=== PATIENT | male | born 1965 ===

== ENCOUNTER 2018-04-26 20:28 | Emergency (ER) | payer MEDICAID ==
[2018-04-26 20:56] VITALS: BP 133/80; PULSE 90; RESP 16; TEMP 97.8; O2SAT 98
--- NOTE | 2018-04-26 21:18 | ED PDOC ---
HPI: Abdomen Time Seen by Provider: 04/26/18 21:07 Chief Complaint (Nursing): Abdominal Pain Chief Complaint (Provider): abdominal pain History Per: Patient History/Exam Limitations: no limitations Onset/Duration Of Symptoms: Days, Waxing/Waning Current Symptoms Are (Timing): Gone Now Location Of Pain/Discomfort: RUQ, Epigastric, LUQ Quality Of Discomfort: Cramping, "Pain" Additional History Per: Patient Additional Complaint(s): 52 y/o male presents for evaluation of intermittent upper abdominal pain x 4 days. Patient states he was evaluated by his primary doctor and sent for an ultrasound because his liver function tests were elevated. Patient admits to drinking approximately 4-5 beers daily. Denies fever, nausea/vomiting, chest pain, shortness of breath, palpitations, changes in bowel movements, urinary symptoms. Past Medical History Reviewed: Historical Data, Nursing Documentation, Vital Signs Vital Signs: Last Vital Signs Temp 97.8 F 04/26/18 20:53 Pulse 90 04/26/18 20:53 Resp 16 04/26/18 20:53 BP 133/80 04/26/18 20:53 Pulse Ox 98 04/26/18 20:53 - Medical History PMH: No Chronic Diseases - Surgical History Surgical History: Hernia Repair - Family History Family History: States: No Known Family Hx - Social History Current smoker - smoking cessation education provided: No Alcohol: > 2 Drinks/Day Drugs: Denies - Allergies Allergies/Adverse Reactions: Allergies Allergy/AdvReac Type Severity Reaction Status Date / Time No Known Allergies Allergy Verified 04/26/18 20:54 Review of Systems ROS Statement: Except As Marked, All Systems Reviewed And Found Negative Gastrointestinal: Positive for: Abdominal Pain Physical Exam - Reviewed Nursing Documentation Reviewed: Yes Vital Signs Reviewed: Yes - Physical Exam Appears: Positive for: Well, Non-toxic, No Acute Distress Head Exam: Positive for: ATRAUMATIC, NORMAL INSPECTION, NORMOCEPHALIC Skin: Positive for: Normal Color Eye Exam: Positive for: Normal appearance ENT: Positive for: Normal ENT Inspection Cardiovascular/Chest: Positive for: Regular Rate, Rhythm Respiratory: Positive for: Normal Breath Sounds Gastrointestinal/Abdominal: Positive for: Normal Exam, Bowel Sounds, Soft. Negative for: Tenderness Back: Positive for: Normal Inspection Extremity: Positive for: Normal ROM Neurologic/Psych: Positive for: Alert, Oriented (x3) - Laboratory Results Result Diagrams: 04/26/18 21:38 04/26/18 21:38 - ECG ECG: Positive for: Viewed By Me (reviewed by ED attending) ECG Rhythm: Positive for: Nonspecific Changes O2 Sat by Pulse Oximetry: 98 Pulse Ox Interpretation: Normal - Progress ED Course And Treament: -cbc -cmp -lipase -serum alcohol -urinalysis -abdomen u/s 23:30 Patient dress, states he is feeling better and wants to leave. Patient was advised that ultrasound results not back yet Patient demonstrates full understanding, requesting to have heplock removed. Upon going to write up AMA paperwork patient left ED Disposition - Clinical Impression Clinical Impression: Abdominal pain, Alcohol abuse - Disposition Disposition: Left W/O Treatment Disposition Time: 23:30 Condition: IMPROVED Forms: [facility] (Malay)
[2018-04-26 21:49] LABS: BASO # 0.1 K/uL (0.0-0.2); BASO % 0.9 % (0.0-2.0); EOS # 0.1 K/uL (0.0-0.7); EOS % 1.7 % (0.0-4.0); LYMPH # 2.6 K/uL (1.0-4.3); LYMPH % 37.2 % (20.0-40.0); MEAN CELL VOLUME 93.6 fl (80.0-94.0); MEAN CORPUSCULAR HEMOGLOBIN 31.4 pg (27.0-31.0); MEAN CORPUSCULAR HGB CONC 33.6 g/dL (33.0-37.0); MONO # 0.8 K/uL (0.0-0.8); MONO % 11.1 % (0.0-10.0); NEUT # 3.4 K/uL (1.8-7.0); NEUT % 49.1 % (50.0-75.0); RBC 4.46 Mil/uL (4.40-5.90); RED CELL DISTRIBUTION WIDTH 13.3 % (11.5-14.5)
[2018-04-26 21:59] LABS: ALB/GLOB RATIO 1.3 (1.0-2.1); ALT/SGPT 87 U/L (21-72); AST/SGOT 65 U/L (17-59); BLOOD UREA NITROGEN 13 mg/dl (9-20); CALCIUM 8.9 mg/dL (8.4-10.2); GFR NON-AFRICAN AMERICAN > 60; LIPASE 253 U/L (23-300)
--- NOTE | 2018-04-27 08:41 | CARD ---
APPROVED REPORT Date of service: 04/26/2018 EKG Measurement Heart [id number] <Conclusion> Normal sinus rhythm Minimal voltage criteria for LVH, may be normal variant T wave abnormality, consider lateral ischemia Abnormal ECG
--- NOTE | 2018-04-27 11:05 | US ---
Date of service: 04/26/2018 HISTORY: upper abdominal pain, elevated LFTs COMPARISON: None. TECHNIQUE: Sonographic evaluation of the right upper quadrant of the abdomen. FINDINGS: LIVER: Measures 17.1 cm in length. Hepatopedal blood flow. Fatty infiltration manifest ultrasonographically as increased echogenicity of the liver parenchyma. No mass. No intrahepatic bile duct dilatation. GALLBLADDER: Cholelithiasis. Negative study for gallbladder wall thickening, pericholecystic fluid, sonographic Durand's sign. COMMON BILE DUCT: Measures 5.0 mm. No stones. No dilatation. PANCREAS: Unremarkable as visualized. No mass. No ductal dilatation. RIGHT KIDNEY: Measures 5.8 x 11.2 cm in length. Normal echogenicity. No calculus, mass, or hydronephrosis. AORTA: No aneurysmal dilatation. IVC: Unremarkable. OTHER FINDINGS: None . IMPRESSION: Cholelithiasis. No sonographic evidence of acute cholecystitis. Concordant findings (preliminary report) provided by [facility].
== END 2018-04-26 23:30 | disposition left against medical advice (07) ==
LOC: H.ER 20:28
DX: R10.13 Epigastric pain (principal); F10.10 Alcohol abuse, uncomplicated

== ENCOUNTER 2018-09-09 07:55 | Emergency (ER) | payer MEDICAID ==
[2018-09-09 08:01] VITALS: BMI 29.7
[2018-09-09 08:04] VITALS: BP 194/127; PULSE 92; RESP 18; TEMP 98.6; O2SAT 99
[2018-09-09] MEDS ORDERED: Amoxicillin-Clav 500-125 mg Tab PO STA (08:19)
--- NOTE | 2018-09-09 08:36 | ED PDOC ---
HPI: Skin/Bite Injury Time Seen by Provider: 09/09/18 08:09 Chief Complaint (Nursing): Abnormal Skin Integrity Chief Complaint (Provider): Abnormal Skin Integrity History Per: Patient History/Exam Limitations: no limitations Onset/Duration Of Symptoms: Days (x1) Current Symptoms Are (Timing): Still Present Additional Complaint(s): 53 y/o male with a PMHx of HTN and DM presents to the ED for evaluation of a rash, onset one day ago. Patient notes symptoms began after drinking a cup of tea and honey while at his mother's house about 1 day ago. Patient reports of taking Benadryl every 2 hours and applying cortisone cream for the rash with no relief. Patient describes rash as very itchy. PMD: Non [facility] Provider Past Medical History Reviewed: Historical Data, Nursing Documentation, Vital Signs Vital Signs: Last Vital Signs Temp 98.6 F 09/09/18 08:02 Pulse 92 H 09/09/18 08:02 Resp 18 09/09/18 08:02 BP 194/127 H 09/09/18 08:02 Pulse Ox 99 09/09/18 08:02 - Medical History PMH: Diabetes, HTN - Surgical History Surgical History: Hernia Repair - Family History Family History: States: Unknown Family Hx - Home Medications Home Medications: Ambulatory Orders Medication Instructions Recorded Amoxicillin/Clavulanate [Augmentin 1 tab PO TID #21 tab 09/09/18 500 MG-125 MG] hydrOXYzine HCl [Atarax] 25 mg PO Q6H PRN #20 tab 09/09/18 predniSONE [predniSONE Tab] 40 mg PO DAILY #10 tab 09/09/18 - Allergies Allergies/Adverse Reactions: Allergies Allergy/AdvReac Type Severity Reaction Status Date / Time No Known Allergies Allergy Verified 04/26/18 20:54 Review of Systems ROS Statement: Except As Marked, All Systems Reviewed And Found Negative Skin: Positive for: Rash Physical Exam - Reviewed Nursing Documentation Reviewed: Yes Vital Signs Reviewed: Yes - Physical Exam Appears: Positive for: No Acute Distress, Uncomfortable Head Exam: Positive for: ATRAUMATIC, NORMOCEPHALIC Skin: Positive for: Warm, Rash (Mildly indurated, irregularly shaped, erythematous rash.) Eye Exam: Positive for: Normal appearance Neck: Positive for: Normal Cardiovascular/Chest: Negative for: Bradycardia, Tachycardia Respiratory: Negative for: Respiratory Distress Neurological/Psych: Positive for: Awake, Alert - ECG O2 Sat by Pulse Oximetry: 99 (RA) Pulse Ox Interpretation: Normal Medical Decision Making Medical Decision Making: Time: 818 Plan: -- Atarax 25 mg PO -- Augmentin 1 tab PO -- PredniSONE 40 mg PO Scribe Attestation: Documented by Johnathan Gerard, acting as a scribe Selina Rodriguez MD. Provider Scribe Attestation: All medical record entries made by the Scribe were at my direction and personally dictated by me. I have reviewed the chart and agree that the record accurately reflects my personal performance of the history, physical exam, medical decision making, and the department course for this patient. I have also personally directed, reviewed, and agree with the discharge instructions and disposition. Disposition - Clinical Impression Clinical Impression: Dermatitis - Patient ED Disposition Is Patient to be Admitted: No Doctor Will See Patient In The: Office Counseled Patient/Family Regarding: Diagnosis, Need For Followup, Rx Given - Disposition Disposition: Routine/Home Disposition Time: 08:41 Condition: STABLE Prescriptions: Amoxicillin/Clavulanate [Augmentin 500 MG-125 MG] 1 tab PO TID #21 tab hydrOXYzine HCl [Atarax] 25 mg PO Q6H PRN #20 tab PRN Reason: Itching / Pruritus predniSONE [predniSONE Tab] 40 mg PO DAILY #10 tab Instructions: Dermatitis Forms: [facility] (Georgian) - POA Present On Arrival: None
== END 2018-09-09 08:48 | disposition home or self-care (01) ==
LOC: H.ER 07:55
DX: L30.9 Dermatitis, unspecified (principal); E11.9 Type 2 diabetes mellitus without complications; I10 Essential (primary) hypertension